=== PATIENT | male | born 1975 | race Caucasian/White ===

== ENCOUNTER → 2018-04-16 | Outpatient (REF) | LOC: ZLAB.WCH 17:59 | DX: Z01.89 Encounter for other specified special examinations (principal) | CPT/HCPCS: G0103 ==

== ENCOUNTER 2022-12-03 08:36 | Outpatient (RCR) | payer OTHER | END 2022-12-06 | LOC: WSPT | DX: M25.852 Other specified joint disorders, left hip (principal) ==